=== PATIENT | male | born 1950 | race Caucasian/White ===

== ENCOUNTER 2017-12-23 05:59 | Day surgery (SDC) | payer OTHER | END 2017-12-23 12:20 | disposition home or self-care (01) | LOC: EDBD → CIR.AMB 05:59 | DX: M75.121 Complete rotator cuff tear or rupture of right shoulder, not specified as traumatic (principal); M75.21 Bicipital tendinitis, right shoulder; M25.311 Other instability, right shoulder; M19.011 Primary osteoarthritis, right shoulder ==

== ENCOUNTER 2019-03-15 15:20 | Emergency (ER) | payer OTHER ==
[~2019-03-15] VITALS: Ht 175.3 cm; Wt 82.1 kg
[2019-03-15] MEDS ORDERED: SIMVASTATIN10 MG (15:29)
== END 2019-03-15 20:18 | disposition home or self-care (01) ==
LOC: ER 15:20
DX: R04.0 Epistaxis (principal)

== ENCOUNTER 2024-03-01 14:56 | Outpatient (CLI) | payer OTHER ==
[~2024-03-01 14:56] MED LIST: SIMVASTATIN10 MG
== END 2024-03-01 15:04 | disposition home or self-care (01) ==
LOC: RAD 14:56
PROVIDERS: ATTEND Urology
DX: N40.0 Benign prostatic hyperplasia without lower urinary tract symptoms (principal)

== ENCOUNTER → 2025-08-10 | Emergency (ER) | payer OTHER ==
[~2025-08-10] VITALS: Ht 175.3 cm; Wt 78.0 kg
[~2025-08-10] MED LIST changes: +CEFTRIAXONE SODIUM 1,000 MG VIAL IM STA; +DEXAMETHASONE SODIUM PHOSPHATE 4 MG/ML VIAL IM STA; +KETOROLAC TROMETHAMINE 30 MG VIAL IM STA; +LIDOCAINE HCL 1% 10ML VIAL ONE
== END | disposition home or self-care (01) ==
LOC: ER 14:01
DX: H65.192 Other acute nonsuppurative otitis media, left ear (principal); H60.592 Other noninfective acute otitis externa, left ear
CPT/HCPCS: 96372; 99282; J0696; J1100; J1885